=== PATIENT | female | born 1985 | race Two or more races ===

== ENCOUNTER 2021-01-10 20:25 | Emergency (ER) | payer SELFPAY ==
[~2021-01-10] VITALS: Ht 157.5 cm; Wt 98.6 kg
[2021-01-10] MEDS ORDERED: ASPI-1450 PO (20:54)
[2021-01-10] MEDS ORDERED: PREN-94 PO (20:54)
[2021-01-10 21:17] LABS: GLUCOSE,POINT OF CARE 89 MG/DL (70-110)
[2021-01-10 21:43] LABS: BASOPHILS % (AUTO) 0.5 % (0.0-2.0); HEMATOCRIT 38.2 % (36-46); HEMOGLOBIN 12.7 g/dL (12.0-16.0); LYMPHOCYTES # (AUTO) 2.4 K/uL (1.0-4.8); MEAN CORPUSCULAR HEMOGLOBIN 28.4 pg (26.0-34.0); MEAN CORPUSCULAR HGB CONC 33.1 G/dL (31.0-37.0); MEAN CORPUSCULAR VOLUME 86 fL (80-100); MONOCYTES # (AUTO) 0.6 K/uL (0.1-1.0); MONOCYTES % (AUTO) 7.6 % (2.0-9.0); NEUTROPHILS # (AUTO) 4.6 K/uL (1.8-7.7); NEUTROPHILS % (AUTO) 59.9 % (40.0-70.0); PLATELET COUNT (AUTO) 248 K/uL (150-450); RED BLOOD CELL COUNT(AUTO) 4.46 MIL/uL (4.00-5.20); RED CELL DISTRIBUTION WIDTH 14.2 % (11.5-14.5)
[2021-01-11 01:12] VITALS: BP 132/69
== END 2021-01-11 01:13 | disposition home or self-care (01) ==
LOC: EMS 20:26
DX: O20.9 Hemorrhage in early pregnancy, unspecified (principal); R10.2 Pelvic and perineal pain; O24.419 Gestational diabetes mellitus in pregnancy, unspecified control; Z3A.01 Less than 8 weeks gestation of pregnancy
CPT/HCPCS: 76801; 76817; 82962; 84702; 85025; 86901; 99284